=== PATIENT | male | born 1980 | race Caucasian/White ===

== ENCOUNTER 2016-09-22 07:41 | Day surgery (SDC) | payer BC ==
[~2016-09-22 07:41] MED LIST: LACTATED RINGERS 1,000 ML IV SCH
[2016-09-22] MEDS ORDERED: LACTATED RINGERS 1,000 ML ONE (07:52)
[2016-09-22] MEDS ORDERED: IV START KIT ONE (07:52)
[2016-09-22] MEDS ORDERED: PROPOFOL 40 ML IV ONE (09:38)
== END 2016-09-22 10:45 | disposition home or self-care (01) ==
LOC: SDC 07:41
PROVIDERS: ATTEND Internal Medicine Gastroenterology
DX: Z12.11 Encounter for screening for malignant neoplasm of colon (principal); Z80.0 Family history of malignant neoplasm of digestive organs
CPT/HCPCS: 45378; J7120